=== PATIENT | male | born 1955 | race Caucasian/White ===

== ENCOUNTER 2021-07-14 10:11 | Inpatient (IN) ==
[2021-07-14] MEDS ORDERED: ONDANSETRON 4 MG/2 ML VIAL IV PRN ×2 (13:05→15:46)
[2021-07-14] MEDS ORDERED: HYDROmorphone 2 MG/1 ML VIAL IV STA (13:05)
[2021-07-14 13:06] LABS: Mucus,Urine Occasional /LPF (Occasional); Squamous Epithelial Cell,Urine Occasional /HPF (0-10)
[2021-07-14 13:07] LABS: Bilirubin,Urine Negative (Negative); Blood, Urine Negative (Negative); Glucose,Urine (UA) Negative (Negative); Ketones,Urine Negative (Negative); Nitrite,Urine Negative (Negative); Protein,Urine Negative; Urine Appearance Clear (Clear); Urine Color Yellow (Yellow); Urine Specific Gravity 1.015 (1.001-1.035); Urine Urobilinogen 0.2 EU/DL (<2.0); Urine pH 5.5 (4.5-8.0)
[2021-07-14 13:08] LABS: Basophils # 0.1 10*3/uL (0.0-0.2); Basophils % 0.8 % (0.0-0.8); Eosinophils # 0.6 10*3/uL (0.0-0.87); Eosinophils % 8.8 % (0.00-10.9); Hematocrit 37.6 VOL% (42.0-52.0); Hemoglobin 12.4 GM/DL (14.0-18.0); Immature Granulocytes % 0.9 %; Immature Granulocytes Absolute 0.06 #; Lymphocytes % 15.1 % (21.2-54.2); Mean Corpuscular Volume 87.9 FL (87-102); Mean Platelet Volume 9.5 FL (9.6-12.0); Monocytes % 12.9 % (1.7-12.7); Neutrophils % 61.5 % (38.7-73.9); Platelet Count 220 T/CUMM (130-400); Red Blood Count 4.28 MC/CUMM (3.8-5.5); Red Cell Distribution Width 13.9 % (9.3-17.3); White Blood Count 6.6 T/CUMM (4-12)
[2021-07-14] MEDS ORDERED: HYDROmorphone 1 MG/1 ML SYRINGE IV STA (13:44)
[2021-07-14 13:59] LABS: Albumin 3.2 G/DL (3.4-5.0); Calcium 9.5 MG/DL (8.5-10.1); Osmolality,Calculated 281.7 MOS/KG (273-304); Total Protein 6.7 G/DL (6.4-8.2)
[2021-07-14] MEDS ORDERED: GLUCAGON 1 MG VIAL IM PRN (15:46)
[2021-07-14] MEDS ORDERED: DEXTROSE 10% 250 ML BAG IV PRN (16:02)
[2021-07-14] MEDS: SODIUM CHLORIDE 0.45% 1,000 ML IV SCH (18:19)
[2021-07-14] MEDS: MORPHINE 4 MG/1 ML VIAL IV PRN ×2 (18:24→21:08)
[2021-07-14] MEDS: PANTOPRAZOLE 40 MG TABLET PO SCH (18:24)
[2021-07-14] MEDS: HEPARIN 5,000 UNIT/1 ML VIAL SUBCUT SCH (20:58)
[2021-07-15] MEDS: SODIUM CHLORIDE 0.45% 1,000 ML IV SCH ×2 (04:30→14:06)
[2021-07-15 06:35] LABS: Basophils # 0.1 10*3/uL (0.0-0.2); Basophils % 0.9 % (0.0-0.8); Eosinophils # 0.5 10*3/uL (0.0-0.87); Eosinophils % 7.6 % (0.00-10.9); Hematocrit 35.1 VOL% (42.0-52.0); Hemoglobin 11.4 GM/DL (14.0-18.0); Immature Granulocytes Absolute 0.07 #; Lymphocytes % 14.1 % (21.2-54.2); Mean Corpuscular HGB Conc 32.5 GM/DL (32-36); Mean Corpuscular Volume 87.8 FL (87-102); Mean Platelet Volume 9.3 FL (9.6-12.0); Monocytes % 11.8 % (1.7-12.7); Neutrophils % 64.6 % (38.7-73.9); Platelet Count 205 T/CUMM (130-400); Red Cell Distribution Width 13.8 % (9.3-17.3); White Blood Count 6.9 T/CUMM (4-12)
[2021-07-15 06:53] LABS: Albumin 2.9 G/DL (3.4-5.0); Bilirubin,Total 0.9 MG/DL (0.20-1.00); Calcium 9.2 MG/DL (8.5-10.1); Osmolality,Calculated 280.1 MOS/KG (273-304); Potassium 5.2 MMOL/L (3.5-5.1); Total Protein 6.6 G/DL (6.4-8.2)
[2021-07-15] MEDS: MORPHINE 4 MG/1 ML VIAL IV PRN (10:02)
[2021-07-15 10:40] LABS: INR 1.1; PT Patient Result 11.8 SECS (10.5-12.0)
[2021-07-15] MEDS: HEPARIN 5,000 UNIT/1 ML VIAL SUBCUT SCH ×2 (11:20→22:00)
[2021-07-15] MEDS: PANTOPRAZOLE 40 MG TABLET PO SCH (11:20)
[2021-07-15] MEDS ORDERED: SODIUM POLYSTYRENE SULFATE 15 GM/60 ML BOTTLE PO SCH (14:30)
[2021-07-15] MEDS ORDERED: DIAZEPAM 5 MG TABLET PO ONE (16:00)
[2021-07-16] MEDS: SODIUM CHLORIDE 0.45% 1,000 ML IV SCH ×2 (00:06→17:07)
[2021-07-16] MEDS ORDERED: cefTRIAXone 1,000 MG in SODIUM CHLORIDE 0.9% 100 ML IV ONE (06:00)
[2021-07-16 08:50] LABS: Basophils # 0.1 10*3/uL (0.0-0.2); Basophils % 0.8 % (0.0-0.8); Eosinophils # 0.4 10*3/uL (0.0-0.87); Eosinophils % 7.1 % (0.00-10.9); Hematocrit 34.1 VOL% (42.0-52.0); Hemoglobin 11.7 GM/DL (14.0-18.0); Immature Granulocytes % 0.8 %; Immature Granulocytes Absolute 0.05 #; Lymphocytes # 0.8 10*3/uL (1.4-4.0); Lymphocytes % 12.5 % (21.2-54.2); Mean Corpuscular HGB Conc 34.3 GM/DL (32-36); Mean Corpuscular Volume 85.7 FL (87-102); Mean Platelet Volume 9.4 FL (9.6-12.0); Monocytes % 12.2 % (1.7-12.7); Neutrophils % 66.6 % (38.7-73.9); Platelet Count 191 T/CUMM (130-400); Red Blood Count 3.98 MC/CUMM (3.8-5.5); Red Cell Distribution Width 13.2 % (9.3-17.3); White Blood Count 6.2 T/CUMM (4-12)
[2021-07-16 09:05] LABS: Albumin 2.8 G/DL (3.4-5.0); Bilirubin,Total 0.9 MG/DL (0.20-1.00); Calcium 9.1 MG/DL (8.5-10.1); Osmolality,Calculated 277.2 MOS/KG (273-304); Total Protein 6.4 G/DL (6.4-8.2)
[2021-07-16] MEDS ORDERED: SODIUM CHLORIDE 0.9% 1,000 ML IV SCH (10:00)
[2021-07-16] MEDS ORDERED: ETOMIDATE 40 MG/20 ML VIAL IV ONE (10:09)
[2021-07-16] MEDS ORDERED: NEOMYCIN/POLYMYXIN IRRIG SOLN 1 ML AMP BLADDERIRR ONE (10:09)
[2021-07-16] MEDS ORDERED: LIDOCAINE 2% 5 ML VIAL ONE (10:32)
[2021-07-16] MEDS ORDERED: SEVOFLURANE 1 UNIT/15 MINUTE INH ONE (10:32)
[2021-07-16] MEDS ORDERED: propofoL 200 MG/20 ML VIAL IV ONE (10:32)
[2021-07-16] MEDS ORDERED: fentaNYL 100 MCG/2 ML VIAL ONE (10:38)
[2021-07-16] MEDS: HEPARIN 5,000 UNIT/1 ML VIAL SUBCUT SCH ×2 (12:44→21:40)
[2021-07-16] MEDS: SODIUM CHLORIDE 0.9% 1,000 ML IV SCH ×2 (12:46→22:42)
[2021-07-16] MEDS ORDERED: ACETAMINOPHEN 325 MG TABLET PO PRN (14:01)
[2021-07-16] MEDS: MORPHINE 4 MG/1 ML VIAL IV PRN ×3 (14:29→22:41)
[2021-07-16] MEDS: PANTOPRAZOLE 40 MG TABLET PO SCH (17:05)
[2021-07-17 05:47] LABS: Basophils % 0.7 % (0.0-0.8); Eosinophils # 0.4 10*3/uL (0.0-0.87); Eosinophils % 6.6 % (0.00-10.9); Hematocrit 34.2 VOL% (42.0-52.0); Hemoglobin 11.4 GM/DL (14.0-18.0); Immature Granulocytes % 0.8 %; Immature Granulocytes Absolute 0.05 #; Lymphocytes # 0.8 10*3/uL (1.4-4.0); Lymphocytes % 12.9 % (21.2-54.2); Mean Corpuscular HGB Conc 33.3 GM/DL (32-36); Mean Corpuscular Volume 86.8 FL (87-102); Mean Platelet Volume 9.5 FL (9.6-12.0); Monocytes % 12.6 % (1.7-12.7); Neutrophils % 66.4 % (38.7-73.9); Platelet Count 222 T/CUMM (130-400); Red Blood Count 3.94 MC/CUMM (3.8-5.5); Red Cell Distribution Width 13.2 % (9.3-17.3)
[2021-07-17 06:00] LABS: Albumin 2.9 G/DL (3.4-5.0); Bilirubin,Total 0.9 MG/DL (0.20-1.00); Calcium 9.1 MG/DL (8.5-10.1); Osmolality,Calculated 278.8 MOS/KG (273-304); Potassium 4.1 MMOL/L (3.5-5.1); Total Protein 6.5 G/DL (6.4-8.2)
[2021-07-17] MEDS ORDERED: BISACODYL 5 MG TABLET PO PRN (09:42)
[2021-07-17] MEDS ORDERED: BISACODYL 5 MG TABLET PO ONE (09:42)
[2021-07-17] MEDS: HEPARIN 5,000 UNIT/1 ML VIAL SUBCUT SCH ×2 (09:52→21:11)
[2021-07-17] MEDS: MORPHINE 4 MG/1 ML VIAL IV PRN ×5 (09:52→22:13)
[2021-07-17] MEDS: SODIUM CHLORIDE 0.9% 1,000 ML IV SCH ×2 (09:53→21:12)
[2021-07-18] MEDS: MORPHINE 4 MG/1 ML VIAL IV PRN ×6 (04:33→23:17)
[2021-07-18 06:28] LABS: Basophils # 0.1 10*3/uL (0.0-0.2); Basophils % 0.9 % (0.0-0.8); Eosinophils # 0.5 10*3/uL (0.0-0.87); Eosinophils % 8.6 % (0.00-10.9); Hematocrit 34.7 VOL% (42.0-52.0); Hemoglobin 11.6 GM/DL (14.0-18.0); Immature Granulocytes % 1.1 %; Immature Granulocytes Absolute 0.06 #; Lymphocytes # 0.8 10*3/uL (1.4-4.0); Lymphocytes % 14.2 % (21.2-54.2); Mean Corpuscular HGB Conc 33.4 GM/DL (32-36); Mean Corpuscular Volume 87.4 FL (87-102); Mean Platelet Volume 9.7 FL (9.6-12.0); Monocytes % 12.6 % (1.7-12.7); Neutrophils % 62.6 % (38.7-73.9); Platelet Count 205 T/CUMM (130-400); Red Blood Count 3.97 MC/CUMM (3.8-5.5); Red Cell Distribution Width 13.7 % (9.3-17.3); White Blood Count 5.5 T/CUMM (4-12)
[2021-07-18 06:51] LABS: Albumin 2.8 G/DL (3.4-5.0); Calcium 8.7 MG/DL (8.5-10.1); Osmolality,Calculated 281.4 MOS/KG (273-304); Total Protein 6.4 G/DL (6.4-8.2)
[2021-07-18] MEDS: SODIUM CHLORIDE 0.9% 1,000 ML IV SCH ×3 (08:33→19:30)
[2021-07-18] MEDS: HEPARIN 5,000 UNIT/1 ML VIAL SUBCUT SCH ×2 (08:35→20:16)
[2021-07-18 11:54] LABS: Arterial Base Excess iSTAT -3 MMOL/L (-2.5-2.5); Arterial Bicarbonate iSTAT 20.8 MMOL/L (20-26); Arterial O2 Saturation iSTAT 97 % (95-100); Arterial PCO2 iSTAT 32 MM HG (35-48); Arterial PO2 iSTAT 84 MM HG (80-95); Arterial Total CO2 iSTAT 22 MMO/L (23-27); Arterial pH iSTAT 7.419 (7.35-7.45)
[2021-07-18] MEDS: OXYBUTYNIN XL 15 MG TABLET PO SCH (20:15)
[2021-07-19] MEDS: MORPHINE 4 MG/1 ML VIAL IV PRN ×2 (03:50→10:02)
[2021-07-19 05:48] LABS: Basophils # 0.1 10*3/uL (0.0-0.2); Basophils % 0.8 % (0.0-0.8); Eosinophils # 0.5 10*3/uL (0.0-0.87); Eosinophils % 8.9 % (0.00-10.9); Hemoglobin 11.6 GM/DL (14.0-18.0); Immature Granulocytes % 1.2 %; Immature Granulocytes Absolute 0.07 #; Lymphocytes # 0.8 10*3/uL (1.4-4.0); Lymphocytes % 13.1 % (21.2-54.2); Mean Corpuscular HGB Conc 33.1 GM/DL (32-36); Mean Corpuscular Volume 87.5 FL (87-102); Mean Platelet Volume 9.6 FL (9.6-12.0); Monocytes % 13.7 % (1.7-12.7); Neutrophils % 62.3 % (38.7-73.9); Platelet Count 220 T/CUMM (130-400); Red Cell Distribution Width 13.7 % (9.3-17.3)
[2021-07-19 06:12] LABS: Albumin 2.8 G/DL (3.4-5.0); Bilirubin,Total 0.7 MG/DL (0.20-1.00); Calcium 9.1 MG/DL (8.5-10.1); Osmolality,Calculated 277.5 MOS/KG (273-304); Potassium 3.8 MMOL/L (3.5-5.1); Total Protein 6.2 G/DL (6.4-8.2)
[2021-07-19] MEDS ORDERED: BISACODYL 10 MG SUPP RECTAL ONE (07:25)
[2021-07-19] MEDS: HEPARIN 5,000 UNIT/1 ML VIAL SUBCUT SCH (08:34)
[2021-07-19] MEDS: SODIUM CHLORIDE 0.9% 1,000 ML IV SCH ×2 (15:17→21:39)
[2021-07-19] MEDS: KETOROLAC 30 MG/1 ML VIAL IV PRN (16:20)
[2021-07-19] MEDS: GABAPENTIN 100 MG CAPSULE PO SCH (21:39)
[2021-07-19] MEDS: OXYBUTYNIN XL 15 MG TABLET PO SCH (21:39)
[2021-07-19] MEDS: oxyCODONE ER 20 MG TABLET PO SCH (21:39)
[2021-07-20 06:05] LABS: Basophils # 0.1 10*3/uL (0.0-0.2); Basophils % 0.9 % (0.0-0.8); Eosinophils # 0.5 10*3/uL (0.0-0.87); Eosinophils % 7.4 % (0.00-10.9); Hemoglobin 11.5 GM/DL (14.0-18.0); Immature Granulocytes % 1.3 %; Immature Granulocytes Absolute 0.08 #; Lymphocytes # 0.9 10*3/uL (1.4-4.0); Lymphocytes % 13.7 % (21.2-54.2); Mean Corpuscular HGB Conc 32.9 GM/DL (32-36); Mean Corpuscular Volume 87.5 FL (87-102); Mean Platelet Volume 9.3 FL (9.6-12.0); Monocytes % 10.9 % (1.7-12.7); Neutrophils % 65.8 % (38.7-73.9); Platelet Count 201 T/CUMM (130-400); Red Cell Distribution Width 13.8 % (9.3-17.3); White Blood Count 6.4 T/CUMM (4-12)
[2021-07-20 06:12] LABS: Osmolality,Calculated 283.1 MOS/KG (273-304); Potassium 4.1 MMOL/L (3.5-5.1)
[2021-07-20] MEDS ORDERED: fentaNYL 100 MCG/2 ML VIAL ONE (08:50)
[2021-07-20] MEDS: oxyCODONE ER 20 MG TABLET PO SCH ×2 (09:00→21:55)
[2021-07-20] MEDS: GABAPENTIN 100 MG CAPSULE PO SCH ×2 (09:00→21:55)
[2021-07-20] MEDS ORDERED: ROCURONIUM 50 MG/5 ML VIAL IV ONE (09:17)
[2021-07-20] MEDS ORDERED: SEVOFLURANE 1 UNIT/15 MINUTE INH ONE (09:17)
[2021-07-20] MEDS ORDERED: propofoL 200 MG/20 ML VIAL IV ONE (09:17)
[2021-07-20] MEDS ORDERED: ONDANSETRON 4 MG/2 ML VIAL ONE (09:17)
[2021-07-20] MEDS ORDERED: LIDOCAINE 2% 5 ML VIAL ONE (09:17)
[2021-07-20] MEDS ORDERED: ETOMIDATE 40 MG/20 ML VIAL IV ONE (09:17)
[2021-07-20] MEDS ORDERED: LACTATED RINGERS 1,000 ML IV ONE (09:27)
[2021-07-20] MEDS ORDERED: TISSUE ADHESIVE 1 EACH APPLICATOR TOP ONE (09:47)
[2021-07-20] MEDS ORDERED: SUGAMMADEX 200 MG/2 ML VIAL IV ONE (09:49)
[2021-07-20] MEDS ORDERED: ALBUTEROL 2.5 MG/3 ML NEB RESP TX ONE (10:10)
[2021-07-20 10:37] LABS: Arterial Base Excess iSTAT -6 MMOL/L (-2.5-2.5); Arterial Bicarbonate iSTAT 19.6 MMOL/L (20-26); Arterial O2 Saturation iSTAT 87 % (95-100); Arterial PCO2 iSTAT 39 MM HG (35-48); Arterial PO2 iSTAT 58 MM HG (80-95); Arterial Total CO2 iSTAT 21 MMO/L (23-27); Arterial pH iSTAT 7.311 (7.35-7.45)
[2021-07-20] MEDS ORDERED: DEXAMETHASONE 4 MG/1 ML VIAL ONE (11:04)
[2021-07-20] MEDS: SODIUM CHLORIDE 0.9% 1,000 ML IV SCH ×2 (19:00→19:16)
[2021-07-20] MEDS: OXYBUTYNIN XL 15 MG TABLET PO SCH (21:55)
[2021-07-21 06:17] LABS: Basophils % 0.6 % (0.0-0.8); Eosinophils # 0.1 10*3/uL (0.0-0.87); Eosinophils % 1.1 % (0.00-10.9); Hematocrit 33.4 VOL% (42.0-52.0); Hemoglobin 10.9 GM/DL (14.0-18.0); Immature Granulocytes % 1.3 %; Immature Granulocytes Absolute 0.09 #; Lymphocytes % 14.3 % (21.2-54.2); Mean Corpuscular HGB Conc 32.6 GM/DL (32-36); Mean Corpuscular Volume 90.5 FL (87-102); Mean Platelet Volume 10.1 FL (9.6-12.0); Monocytes % 10.2 % (1.7-12.7); Neutrophils % 72.5 % (38.7-73.9); Platelet Count 207 T/CUMM (130-400); Red Blood Count 3.69 MC/CUMM (3.8-5.5); Red Cell Distribution Width 13.8 % (9.3-17.3); White Blood Count 7.2 T/CUMM (4-12)
[2021-07-21 06:35] LABS: Calcium 8.8 MG/DL (8.5-10.1); Osmolality,Calculated 288.1 MOS/KG (273-304); Potassium 4.2 MMOL/L (3.5-5.1)
[2021-07-21] MEDS: GABAPENTIN 100 MG CAPSULE PO SCH ×2 (08:45→21:35)
[2021-07-21] MEDS: oxyCODONE ER 20 MG TABLET PO SCH ×2 (08:45→21:36)
[2021-07-21] MEDS ORDERED: POLYETHYLENE GLYCOL POWDER 17 GM PACK PO SCH (10:15)
[2021-07-21] MEDS: DOCUSATE SODIUM 100 MG CAPSULE PO SCH ×2 (12:06→21:35)
[2021-07-21] MEDS: SENNA 8.6 MG TABLET PO SCH ×2 (12:06→21:35)
[2021-07-21] MEDS: KETOROLAC 30 MG/1 ML VIAL IV PRN (18:24)
[2021-07-21] MEDS: SODIUM CHLORIDE 0.9% 1,000 ML IV SCH ×2 (21:35→21:37)
[2021-07-21] MEDS: OXYBUTYNIN XL 15 MG TABLET PO SCH (21:35)
[2021-07-21] MEDS: HEPARIN 5,000 UNIT/1 ML VIAL SUBCUT SCH (21:36)
[2021-07-22] MEDS: SODIUM CHLORIDE 0.9% 1,000 ML IV SCH ×3 (04:01→22:16)
[2021-07-22 06:31] LABS: Basophils # 0.1 10*3/uL (0.0-0.2); Basophils % 0.7 % (0.0-0.8); Eosinophils # 0.4 10*3/uL (0.0-0.87); Eosinophils % 5.9 % (0.00-10.9); Hematocrit 34.3 VOL% (42.0-52.0); Hemoglobin 11.1 GM/DL (14.0-18.0); Immature Granulocytes % 1.7 %; Immature Granulocytes Absolute 0.12 #; Lymphocytes # 0.9 10*3/uL (1.4-4.0); Lymphocytes % 13.5 % (21.2-54.2); Mean Corpuscular HGB Conc 32.4 GM/DL (32-36); Mean Corpuscular Volume 90.5 FL (87-102); Mean Platelet Volume 9.8 FL (9.6-12.0); Monocytes % 10.2 % (1.7-12.7); Platelet Count 191 T/CUMM (130-400); Red Blood Count 3.79 MC/CUMM (3.8-5.5); Red Cell Distribution Width 14.3 % (9.3-17.3)
[2021-07-22 06:48] LABS: Calcium 8.1 MG/DL (8.5-10.1); Osmolality,Calculated 285.1 MOS/KG (273-304); Potassium 3.8 MMOL/L (3.5-5.1)
[2021-07-22] MEDS: SENNA 8.6 MG TABLET PO SCH ×2 (09:04→22:04)
[2021-07-22] MEDS: oxyCODONE ER 20 MG TABLET PO SCH ×2 (09:04→22:04)
[2021-07-22] MEDS: DOCUSATE SODIUM 100 MG CAPSULE PO SCH ×2 (09:04→22:04)
[2021-07-22] MEDS: GABAPENTIN 100 MG CAPSULE PO SCH ×2 (09:04→22:04)
[2021-07-22] MEDS: HEPARIN 5,000 UNIT/1 ML VIAL SUBCUT SCH ×2 (09:48→22:06)
[2021-07-22] MEDS: KETOROLAC 30 MG/1 ML VIAL IV PRN (18:36)
[2021-07-22] MEDS: OXYBUTYNIN XL 15 MG TABLET PO SCH (22:04)
[2021-07-23 05:38] LABS: Basophils # 0.1 10*3/uL (0.0-0.2); Basophils % 0.9 % (0.0-0.8); Eosinophils # 0.5 10*3/uL (0.0-0.87); Eosinophils % 7.2 % (0.00-10.9); Hematocrit 34.4 VOL% (42.0-52.0); Hemoglobin 11.4 GM/DL (14.0-18.0); Immature Granulocytes % 1.8 %; Immature Granulocytes Absolute 0.12 #; Lymphocytes # 0.9 10*3/uL (1.4-4.0); Lymphocytes % 13.1 % (21.2-54.2); Mean Corpuscular HGB Conc 33.1 GM/DL (32-36); Mean Corpuscular Volume 87.1 FL (87-102); Mean Platelet Volume 9.8 FL (9.6-12.0); Platelet Count 226 T/CUMM (130-400); Red Blood Count 3.95 MC/CUMM (3.8-5.5); Red Cell Distribution Width 14.1 % (9.3-17.3); White Blood Count 6.7 T/CUMM (4-12)
[2021-07-23 05:45] LABS: Osmolality,Calculated 282.3 MOS/KG (273-304); Potassium 3.5 MMOL/L (3.5-5.1)
[2021-07-23] MEDS: SENNA 8.6 MG TABLET PO SCH ×3 (08:29→22:10)
[2021-07-23] MEDS: DOCUSATE SODIUM 100 MG CAPSULE PO SCH ×3 (08:30→22:10)
[2021-07-23] MEDS: oxyCODONE ER 20 MG TABLET PO SCH ×3 (08:30→22:13)
[2021-07-23] MEDS: GABAPENTIN 100 MG CAPSULE PO SCH ×3 (08:30→22:10)
[2021-07-23] MEDS: HEPARIN 5,000 UNIT/1 ML VIAL SUBCUT SCH (08:31)
[2021-07-23] MEDS ORDERED: MAGNESIUM SULF RIDER 2 GM/50 ML PREMIX IV ONE (09:00)
[2021-07-23] MEDS: predniSONE 20 MG TABLET PO SCH (10:34)
[2021-07-23] MEDS ORDERED: APIXABAN 5 MG TABLET PO SCH (12:00)
[2021-07-23 12:01] LABS: HIV Antigen/Antibody Result Nonreactive (Nonreactive); Hepatitis B Surface Ag Quant < 0.10 Index; Hepatitis B Surface Ag Result Non-Reactive (NonReactive); Hepatitis C Virus Ab Quant 0.07 Index; Hepatitis C Virus Ab Result Non-Reactive (NonReactive)
[2021-07-23] MEDS ORDERED: HEPARIN DRIP 25,000 UNITS/500 ML PREMIX IV SCH ×2 (12:50→15:30)
[2021-07-23] MEDS: SODIUM CHLORIDE 0.9% 1,000 ML IV SCH (14:07)
[2021-07-23 15:31] LABS: Basophils % 0.5 % (0.0-0.8); Eosinophils # 0.1 10*3/uL (0.0-0.87); Eosinophils % 0.8 % (0.00-10.9); Hematocrit 34.7 VOL% (42.0-52.0); Hemoglobin 11.6 GM/DL (14.0-18.0); Immature Granulocytes Absolute 0.12 #; Lymphocytes # 0.4 10*3/uL (1.4-4.0); Lymphocytes % 7.2 % (21.2-54.2); Mean Corpuscular HGB Conc 33.4 GM/DL (32-36); Mean Corpuscular Volume 87.6 FL (87-102); Mean Platelet Volume 9.8 FL (9.6-12.0); Monocytes % 2.3 % (1.7-12.7); Neutrophils % 87.2 % (38.7-73.9); Platelet Count 227 T/CUMM (130-400); Red Blood Count 3.96 MC/CUMM (3.8-5.5); Red Cell Distribution Width 13.9 % (9.3-17.3)
[2021-07-23] MEDS: OXYBUTYNIN XL 15 MG TABLET PO SCH ×2 (21:26→22:10)
[2021-07-23 22:01] LABS: Hematocrit 32.9 VOL% (42.0-52.0); Hemoglobin 11.3 GM/DL (14.0-18.0)
[2021-07-23] MEDS ORDERED: ENOXAPARIN 100 MG/ML SYRINGE SUBCUT ONE (23:38)
[2021-07-24 06:23] LABS: Basophils % 0.5 % (0.0-0.8); Eosinophils # 0.1 10*3/uL (0.0-0.87); Eosinophils % 1.5 % (0.00-10.9); Hematocrit 34.7 VOL% (42.0-52.0); Hemoglobin 11.6 GM/DL (14.0-18.0); Immature Granulocytes % 2.8 %; Immature Granulocytes Absolute 0.21 #; Lymphocytes # 1.1 10*3/uL (1.4-4.0); Lymphocytes % 14.4 % (21.2-54.2); Mean Corpuscular HGB Conc 33.4 GM/DL (32-36); Mean Corpuscular Volume 86.3 FL (87-102); Mean Platelet Volume 10.1 FL (9.6-12.0); Monocytes % 11.3 % (1.7-12.7); Neutrophils % 69.5 % (38.7-73.9); Platelet Count 237 T/CUMM (130-400); Red Blood Count 4.02 MC/CUMM (3.8-5.5); Red Cell Distribution Width 13.7 % (9.3-17.3); White Blood Count 7.4 T/CUMM (4-12)
[2021-07-24 06:34] LABS: Calcium 8.8 MG/DL (8.5-10.1); Osmolality,Calculated 276.7 MOS/KG (273-304); Potassium 3.9 MMOL/L (3.5-5.1)
[2021-07-24] MEDS: SENNA 8.6 MG TABLET PO SCH ×2 (08:33→22:04)
[2021-07-24] MEDS: GABAPENTIN 100 MG CAPSULE PO SCH ×2 (08:33→22:04)
[2021-07-24] MEDS: predniSONE 20 MG TABLET PO SCH (08:33)
[2021-07-24] MEDS: oxyCODONE ER 20 MG TABLET PO SCH ×2 (08:33→22:04)
[2021-07-24] MEDS: DOCUSATE SODIUM 100 MG CAPSULE PO SCH ×2 (08:33→22:04)
[2021-07-24] MEDS: SODIUM CHLORIDE 0.9% 1,000 ML IV SCH ×2 (09:37→12:02)
[2021-07-24 09:44] LABS: Hemoglobin 11.1 GM/DL (14.0-18.0)
[2021-07-24 15:36] LABS: Hematocrit 32.5 VOL% (42.0-52.0); Hemoglobin 11.1 GM/DL (14.0-18.0)
[2021-07-24] MEDS: ENOXAPARIN 120 MG/0.8 ML SYRINGE SUBCUT SCH (22:03)
[2021-07-24] MEDS: OXYBUTYNIN XL 15 MG TABLET PO SCH (22:04)
[2021-07-25] MEDS: SODIUM CHLORIDE 0.9% 1,000 ML IV SCH ×2 (00:30→12:10)
[2021-07-25 05:46] LABS: Hematocrit 32.3 VOL% (42.0-52.0); Hemoglobin 10.9 GM/DL (14.0-18.0); Mean Corpuscular HGB Conc 33.7 GM/DL (32-36); Mean Corpuscular Volume 86.8 FL (87-102); Mean Platelet Volume 9.6 FL (9.6-12.0); Neutrophils % 70.3 % (38.7-73.9); Platelet Count 248 T/CUMM (130-400); Red Blood Count 3.72 MC/CUMM (3.8-5.5); Red Cell Distribution Width 14.1 % (9.3-17.3); White Blood Count 6.6 T/CUMM (4-12)
[2021-07-25 05:47] LABS: Basophils % 0.5 % (0.0-0.8); Eosinophils # 0.1 10*3/uL (0.0-0.87); Eosinophils % 2.1 % (0.00-10.9); Lymphocytes # 0.9 10*3/uL (1.4-4.0); Lymphocytes % 13.8 % (21.2-54.2); Monocytes % 10.3 % (1.7-12.7)
[2021-07-25 06:08] LABS: Calcium 8.7 MG/DL (8.5-10.1); Osmolality,Calculated 278.5 MOS/KG (273-304); Potassium 3.5 MMOL/L (3.5-5.1)
[2021-07-25] MEDS: predniSONE 20 MG TABLET PO SCH (08:24)
[2021-07-25] MEDS: GABAPENTIN 100 MG CAPSULE PO SCH ×2 (08:24→20:21)
[2021-07-25] MEDS: oxyCODONE ER 20 MG TABLET PO SCH ×2 (08:24→20:21)
[2021-07-25] MEDS: SENNA 8.6 MG TABLET PO SCH ×2 (08:24→20:21)
[2021-07-25] MEDS: DOCUSATE SODIUM 100 MG CAPSULE PO SCH ×2 (08:24→20:21)
[2021-07-25] MEDS: ENOXAPARIN 120 MG/0.8 ML SYRINGE SUBCUT SCH ×2 (08:25→20:21)
[2021-07-25] MEDS: OXYBUTYNIN XL 15 MG TABLET PO SCH (20:21)
[2021-07-26 04:27] LABS: Basophils # 0.1 10*3/uL (0.0-0.2); Basophils % 0.8 % (0.0-0.8); Eosinophils # 0.1 10*3/uL (0.0-0.87); Eosinophils % 1.6 % (0.00-10.9); Hematocrit 34.4 VOL% (42.0-52.0); Hemoglobin 11.6 GM/DL (14.0-18.0); Immature Granulocytes % 5.2 %; Immature Granulocytes Absolute 0.39 #; Lymphocytes % 12.8 % (21.2-54.2); Mean Corpuscular HGB Conc 33.7 GM/DL (32-36); Mean Platelet Volume 9.4 FL (9.6-12.0); Monocytes % 12.4 % (1.7-12.7); NRBC # 0.03 10*3/uL; Neutrophils % 67.2 % (38.7-73.9); Platelet Count 209 T/CUMM (130-400); Red Cell Distribution Width 14.3 % (9.3-17.3); White Blood Count 7.5 T/CUMM (4-12)
[2021-07-26 04:43] LABS: Calcium 8.7 MG/DL (8.5-10.1); Osmolality,Calculated 277.5 MOS/KG (273-304); Potassium 3.3 MMOL/L (3.5-5.1)
[2021-07-26 04:52] LABS: Lymphocytes 16 % (20-55); Nucleated Red Blood Cells 1 (0-5); Segmented Neutrophils 78 % (50-85); Total Cells Counted 100
[2021-07-26 04:53] LABS: Hypochromia Slight; Microcytosis Slight; Polychromasia Slight
[2021-07-26 04:54] LABS: Platelet Estimate Normal
[2021-07-26] MEDS ORDERED: HYDROmorphone 1 MG/1 ML SYRINGE IV PRN ×2 (08:11→12:13)
[2021-07-26] MEDS ORDERED: KETOROLAC 30 MG/1 ML VIAL IV PRN (08:13)
[2021-07-26] MEDS ORDERED: MAGNESIUM HYDROXIDE SUSP 30 ML UDCUP PO ONE (09:25)
[2021-07-26] MEDS ORDERED: LACTULOSE 20 GM/30 ML UDCUP PO PRN ×2 (09:42→18:03)
[2021-07-26] MEDS: oxyCODONE ER 20 MG TABLET PO SCH ×2 (09:44→21:30)
[2021-07-26] MEDS: predniSONE 20 MG TABLET PO SCH (09:44)
[2021-07-26] MEDS: DOCUSATE SODIUM 100 MG CAPSULE PO SCH ×2 (09:44→21:30)
[2021-07-26] MEDS: GABAPENTIN 100 MG CAPSULE PO SCH ×2 (09:45→21:30)
[2021-07-26] MEDS: SENNA 8.6 MG TABLET PO SCH ×2 (09:46→21:30)
[2021-07-26] MEDS: ENOXAPARIN 120 MG/0.8 ML SYRINGE SUBCUT SCH ×2 (09:47→21:29)
[2021-07-26] MEDS ORDERED: POTASSIUM CHLORIDE 20 MEQ TABLET PO ONE (11:47)
[2021-07-26] MEDS: SODIUM CHLORIDE 0.9% 1,000 ML IV SCH ×3 (12:19→21:32)
[2021-07-26] MEDS ORDERED: diphenhydrAMINE CAP 25 MG CAPSULE PO PRN (18:03)
[2021-07-26] MEDS ORDERED: ACETAMINOPHEN 325 MG TABLET PO PRN (18:03)
[2021-07-26] MEDS ORDERED: guaiFENesin 200 MG/10 ML UDCUP PO PRN (18:03)
[2021-07-26] MEDS ORDERED: MYLANTA/LIDO VISC 2:1 300 ML BOTTLE SWISH/SPIT PRN (18:03)
[2021-07-26] MEDS ORDERED: ALPRAZolam 0.25 MG TABLET PO PRN (18:03)
[2021-07-26] MEDS ORDERED: ONDANSETRON 4 MG/2 ML VIAL IV PRN (18:03)
[2021-07-26] MEDS ORDERED: TEMAZEPAM 7.5 MG CAPSULE PO PRN (18:03)
[2021-07-26] MEDS ORDERED: MYLANTA/LIDO VISC 2:1 300 ML BOTTLE SWISH/SWAL PRN (18:03)
[2021-07-26] MEDS ORDERED: PROMETHAZINE INJ 25 MG in SODIUM CHLORIDE 0.9% 50 ML IV PRN (18:03)
[2021-07-26] MEDS ORDERED: LOPERAMIDE 2 MG CAPSULE PO PRN ×2 (18:03)
[2021-07-26] MEDS ORDERED: ALUMINUM/MAGNES/SIMETH MAX STR 30 ML UDCUP PO PRN (18:03)
[2021-07-26] MEDS ORDERED: MAGNESIUM HYDROXIDE SUSP 30 ML UDCUP PO PRN (18:03)
[2021-07-26] MEDS: NYSTATIN 500,000 UNIT/5 ML UDCUP SWISH/SWAL SCH ×2 (18:43→21:30)
[2021-07-26] MEDS: OXYBUTYNIN XL 15 MG TABLET PO SCH (21:30)
[2021-07-27 05:11] LABS: Basophils % 0.6 % (0.0-0.8); Eosinophils # 0.1 10*3/uL (0.0-0.87); Eosinophils % 1.8 % (0.00-10.9); Hematocrit 33.4 VOL% (42.0-52.0); Hemoglobin 11.4 GM/DL (14.0-18.0); Immature Granulocytes Absolute 0.22 #; Lymphocytes % 13.6 % (21.2-54.2); Mean Corpuscular HGB Conc 34.1 GM/DL (32-36); Mean Corpuscular Volume 87.2 FL (87-102); Mean Platelet Volume 9.7 FL (9.6-12.0); Monocytes % 11.8 % (1.7-12.7); Neutrophils % 69.2 % (38.7-73.9); Platelet Count 210 T/CUMM (130-400); Red Blood Count 3.83 MC/CUMM (3.8-5.5); Red Cell Distribution Width 14.5 % (9.3-17.3); White Blood Count 7.2 T/CUMM (4-12)
[2021-07-27 05:32] LABS: Calcium 8.7 MG/DL (8.5-10.1); Osmolality,Calculated 277.5 MOS/KG (273-304); Potassium 3.4 MMOL/L (3.5-5.1)
[2021-07-27] MEDS: SODIUM CHLORIDE 0.9% 1,000 ML IV SCH (06:33)
[2021-07-27] MEDS ORDERED: ACETAMINOPHEN 500 MG TABLET PO ONE (08:16)
[2021-07-27] MEDS ORDERED: diphenhydrAMINE 50 MG/1 ML VIAL IV ONE (08:16)
[2021-07-27] MEDS ORDERED: FAMOTIDINE 20 MG/2 ML VIAL IV ONE (08:16)
[2021-07-27] MEDS ORDERED: SODIUM CHLORIDE 0.9% IV ONE (09:00)
[2021-07-27] MEDS ORDERED: BENDAMUSTINE IV ONE (09:00)
[2021-07-27] MEDS ORDERED: RITUXIMAB-ABBS 500 MG, RITUXIMAB-ABBS 250 MG in SODIUM CHLORIDE 0.9% 675 ML IV ONE (09:00)
[2021-07-27] MEDS: ENOXAPARIN 120 MG/0.8 ML SYRINGE SUBCUT SCH (09:20)
[2021-07-27] MEDS: predniSONE 20 MG TABLET PO SCH (09:20)
[2021-07-27] MEDS: oxyCODONE ER 20 MG TABLET PO SCH (09:20)
[2021-07-27] MEDS: SENNA 8.6 MG TABLET PO SCH (09:21)
[2021-07-27] MEDS: GABAPENTIN 100 MG CAPSULE PO SCH (09:21)
[2021-07-27] MEDS: DOCUSATE SODIUM 100 MG CAPSULE PO SCH (09:21)
[2021-07-27] MEDS: NYSTATIN 500,000 UNIT/5 ML UDCUP SWISH/SWAL SCH ×3 (09:22→18:02)
[2021-07-27] MEDS ORDERED: POTASSIUM CHLORIDE 20 MEQ TABLET PO ONE (11:05)
[2021-07-27 18:16] VITALS: BP 143/81
== END 2021-07-27 17:58 | disposition home health service (06) | DRG 823 ==
LOC: SUATTDRO → N.ED 10:11 → N.5E 15:46 → SUATTDRO 15:46 → N.5E 19:15 → N.TELES 07-23 12:45
PROVIDERS: ADMIT Internal Medicine; ATTEND Internal Medicine

== ENCOUNTER 2021-08-16 04:06 | Inpatient (IN) ==
[2021-08-16] MEDS ORDERED: HYDROmorphone 1 MG/1 ML SYRINGE IV STA ×2 (04:48→09:28)
[2021-08-16] MEDS ORDERED: ONDANSETRON 4 MG/2 ML VIAL IV ONE (04:48)
[2021-08-16 05:25] LABS: Basophils % 0.4 % (0.0-0.8); Eosinophils % 0.5 % (0.00-10.9); Hematocrit 35.5 VOL% (42.0-52.0); Hemoglobin 11.9 GM/DL (14.0-18.0); Immature Granulocytes % 0.8 %; Immature Granulocytes Absolute 0.06 #; Lymphocytes # 0.6 10*3/uL (1.4-4.0); Lymphocytes % 8.8 % (21.2-54.2); Mean Corpuscular HGB Conc 33.5 GM/DL (32-36); Mean Corpuscular Volume 85.1 FL (87-102); Mean Platelet Volume 9.1 FL (9.6-12.0); Monocytes % 10.3 % (1.7-12.7); Neutrophils % 79.2 % (38.7-73.9); Platelet Count 193 T/CUMM (130-400); Red Blood Count 4.17 MC/CUMM (3.8-5.5); Red Cell Distribution Width 13.6 % (9.3-17.3); White Blood Count 7.3 T/CUMM (4-12)
[2021-08-16 05:48] LABS: Albumin 3.2 G/DL (3.4-5.0); Bilirubin,Total 0.9 MG/DL (0.20-1.00); Calcium 9.1 MG/DL (8.5-10.1); Osmolality,Calculated 275.7 MOS/KG (273-304); Potassium 3.7 MMOL/L (3.5-5.1); Total Protein 7.5 G/DL (6.4-8.2)
[2021-08-16] MEDS ORDERED: SODIUM CHLORIDE 0.9% 1,000 ML IV STA ×2 (07:48→09:05)
[2021-08-16] MEDS ORDERED: ONDANSETRON 4 MG/2 ML VIAL IV STA (09:28)
[2021-08-16 09:50] LABS: Bacteria,Urine Many /HPF (Few); Mucus,Urine Moderate /LPF (Occasional); RBC,Urine 155 /HPF (0-4)
[2021-08-16 09:51] LABS: Bilirubin,Urine Negative (Negative); Blood, Urine Large mg/dL (Negative); Glucose,Urine (UA) Negative (Negative); Ketones,Urine Negative (Negative); Nitrite,Urine Negative (Negative); Protein,Urine 30 mg/dL (Negative); Urine Appearance Slightly Hazy (Clear); Urine Color Yellow (Yellow)
[2021-08-16 09:52] LABS: Urine Urobilinogen 0.2 eU/dL (<2.0)
[2021-08-16] MEDS ORDERED: cefTRIAXone 1,000 MG in SODIUM CHLORIDE 0.9% 100 ML IV STA (10:13)
[2021-08-16] MEDS ORDERED: ACETAMINOPHEN 325 MG TABLET PO PRN (11:13)
[2021-08-16] MEDS ORDERED: DEXTROSE 10% 250 ML BAG IV PRN (11:13)
[2021-08-16] MEDS ORDERED: GLUCAGON 1 MG VIAL IM PRN (11:13)
[2021-08-16] MEDS: GABAPENTIN 100 MG CAPSULE PO SCH ×2 (11:39→21:03)
[2021-08-16] MEDS: LACTATED RINGERS 1,000 ML IV SCH (11:39)
[2021-08-16] MEDS: PANTOPRAZOLE 40 MG TABLET PO SCH (11:40)
[2021-08-16] MEDS: APIXABAN 5 MG TABLET PO SCH ×2 (12:37→21:03)
[2021-08-16] MEDS: HYDROmorphone 1 MG/1 ML SYRINGE IV PRN (12:37)
[2021-08-16] MEDS: ONDANSETRON 4 MG/2 ML VIAL IV PRN (12:38)
[2021-08-16] MEDS: oxyCODONE/ACETAMINOPHEN 5-325 MG TABLET PO PRN ×2 (12:39→18:31)
[2021-08-16] MEDS: OXYBUTYNIN XL 15 MG TABLET PO SCH (21:03)
[2021-08-16] MEDS: DOCUSATE SODIUM 100 MG CAPSULE PO SCH (21:03)
[2021-08-17] MEDS: HYDROmorphone 1 MG/1 ML SYRINGE IV PRN (00:28)
[2021-08-17] MEDS: LACTATED RINGERS 1,000 ML IV SCH ×3 (00:32→20:01)
[2021-08-17 04:47] LABS: Basophils % 0.5 % (0.0-0.8); Eosinophils # 0.2 10*3/uL (0.0-0.87); Eosinophils % 2.3 % (0.00-10.9); Hematocrit 34.9 VOL% (42.0-52.0); Hemoglobin 11.6 GM/DL (14.0-18.0); Immature Granulocytes % 0.6 %; Immature Granulocytes Absolute 0.04 #; Lymphocytes # 0.9 10*3/uL (1.4-4.0); Lymphocytes % 13.9 % (21.2-54.2); Mean Corpuscular HGB Conc 33.2 GM/DL (32-36); Mean Corpuscular Volume 86.8 FL (87-102); Mean Platelet Volume 9.5 FL (9.6-12.0); Monocytes % 8.6 % (1.7-12.7); Neutrophils % 74.1 % (38.7-73.9); Platelet Count 198 T/CUMM (130-400); Red Blood Count 4.02 MC/CUMM (3.8-5.5); White Blood Count 6.6 T/CUMM (4-12)
[2021-08-17 05:11] LABS: Albumin 2.8 G/DL (3.4-5.0); Bilirubin,Total 0.6 MG/DL (0.20-1.00); Calcium 8.8 MG/DL (8.5-10.1); Osmolality,Calculated 277.4 MOS/KG (273-304); Potassium 3.5 MMOL/L (3.5-5.1)
[2021-08-17] MEDS: PANTOPRAZOLE 40 MG TABLET PO SCH (09:42)
[2021-08-17] MEDS: APIXABAN 5 MG TABLET PO SCH ×2 (09:42→21:22)
[2021-08-17] MEDS: DOCUSATE SODIUM 100 MG CAPSULE PO SCH ×2 (09:42→21:22)
[2021-08-17] MEDS: GABAPENTIN 100 MG CAPSULE PO SCH ×2 (09:42→21:22)
[2021-08-17] MEDS: oxyCODONE/ACETAMINOPHEN 5-325 MG TABLET PO PRN (09:42)
[2021-08-17] MEDS ORDERED: cefTRIAXone 1,000 MG VIAL IV SCH (11:00)
[2021-08-17] MEDS ORDERED: GRANISETRON 1 MG/1 ML VIAL IV SCH ×3 (11:30→13:15)
[2021-08-17] MEDS: cefTRIAXone 1,000 MG in SODIUM CHLORIDE 0.9% 100 ML IV SCH (11:36)
[2021-08-17] MEDS ORDERED: DOXOrubicin 100 MG in SYRINGE 1 EACH IV ONE (12:00)
[2021-08-17] MEDS ORDERED: DEXAMETHASONE INJ 20 MG in SODIUM CHLORIDE 0.9% 50 ML IV ONE (12:00)
[2021-08-17] MEDS ORDERED: diphenhydrAMINE 50 MG/1 ML VIAL IV ONE (12:00)
[2021-08-17] MEDS ORDERED: SODIUM CHLORIDE 0.9% IV ONE ×2 (12:00→14:00)
[2021-08-17] MEDS ORDERED: FAMOTIDINE 20 MG/2 ML VIAL IV ONE (12:00)
[2021-08-17] MEDS ORDERED: CYCLOPHOSPHAMIDE IV ONE (12:00)
[2021-08-17] MEDS ORDERED: vinCRIStine 2 MG in SYRINGE 1 EACH IV ONE (12:00)
[2021-08-17] MEDS ORDERED: RITUXIMAB ABBS IV ONE (14:00)
[2021-08-17] MEDS: VANCOMYCIN INJ 1,500 MG in SODIUM CHLORIDE 0.9% 500 ML IV SCH (18:36)
[2021-08-17] MEDS: OXYBUTYNIN XL 15 MG TABLET PO SCH (21:22)
[2021-08-18] MEDS: VANCOMYCIN INJ 1,500 MG in SODIUM CHLORIDE 0.9% 500 ML IV SCH ×2 (03:53→16:48)
[2021-08-18] MEDS: oxyCODONE/ACETAMINOPHEN 5-325 MG TABLET PO PRN ×3 (04:13→16:45)
[2021-08-18] MEDS: GABAPENTIN 100 MG CAPSULE PO SCH ×2 (09:40→21:46)
[2021-08-18] MEDS: DOCUSATE SODIUM 100 MG CAPSULE PO SCH ×2 (09:40→21:46)
[2021-08-18] MEDS: PANTOPRAZOLE 40 MG TABLET PO SCH (09:40)
[2021-08-18] MEDS: APIXABAN 5 MG TABLET PO SCH ×2 (09:40→21:46)
[2021-08-18] MEDS: LACTATED RINGERS 1,000 ML IV SCH ×2 (10:38→21:45)
[2021-08-18] MEDS: cefTRIAXone 1,000 MG in SODIUM CHLORIDE 0.9% 100 ML IV SCH (12:25)
[2021-08-18] MEDS: HYDROmorphone 1 MG/1 ML SYRINGE IV PRN (19:10)
[2021-08-18] MEDS: OXYBUTYNIN XL 15 MG TABLET PO SCH (21:48)
[2021-08-19] MEDS: LACTATED RINGERS 1,000 ML IV SCH ×3 (02:02→14:53)
[2021-08-19] MEDS: HYDROmorphone 1 MG/1 ML SYRINGE IV PRN ×3 (02:15→19:06)
[2021-08-19] MEDS: VANCOMYCIN INJ 1,500 MG in SODIUM CHLORIDE 0.9% 500 ML IV SCH (04:48)
[2021-08-19] MEDS: oxyCODONE/ACETAMINOPHEN 5-325 MG TABLET PO PRN ×2 (04:51→11:59)
[2021-08-19] MEDS: AMOXICILLIN 875 MG TABLET PO SCH ×2 (12:00→21:30)
[2021-08-19] MEDS: GABAPENTIN 100 MG CAPSULE PO SCH (12:01)
[2021-08-19] MEDS: APIXABAN 5 MG TABLET PO SCH ×2 (12:01→21:30)
[2021-08-19] MEDS: PANTOPRAZOLE 40 MG TABLET PO SCH (12:01)
[2021-08-19] MEDS: DOCUSATE SODIUM 100 MG CAPSULE PO SCH ×2 (12:02→21:30)
[2021-08-19] MEDS: ONDANSETRON 4 MG/2 ML VIAL IV PRN (17:01)
[2021-08-19] MEDS ORDERED: fentaNYL 25 MCG/HR PATCH TRANSDERM SCH (18:00)
[2021-08-19] MEDS: OXYBUTYNIN XL 15 MG TABLET PO SCH (21:30)
[2021-08-19] MEDS: GABAPENTIN 300 MG CAPSULE PO SCH (21:30)
[2021-08-20] MEDS: LACTATED RINGERS 1,000 ML IV SCH (01:10)
[2021-08-20] MEDS: GABAPENTIN 300 MG CAPSULE PO SCH ×2 (09:24→14:13)
[2021-08-20] MEDS: APIXABAN 5 MG TABLET PO SCH (09:24)
[2021-08-20] MEDS: PANTOPRAZOLE 40 MG TABLET PO SCH (09:25)
[2021-08-20] MEDS: DOCUSATE SODIUM 100 MG CAPSULE PO SCH (09:25)
[2021-08-20] MEDS: AMOXICILLIN 875 MG TABLET PO SCH (09:25)
[2021-08-20] MEDS ORDERED: FILGRASTIM-SNDZ 480 MCG/0.8 ML SYRINGE SUBCUT ONE (11:00)
[2021-08-20 12:11] VITALS: BP 145/94
== END 2021-08-20 14:50 | disposition home health service (06) | DRG 841 ==
LOC: N.ED 04:06 → N.TELES 11:13 → SUATTDRO 11:13 → N.TELES 15:30
PROVIDERS: ADMIT Internal Medicine; ATTEND Hospitalist